=== PATIENT | female | born 1970 | race Caucasian/White ===

== ENCOUNTER → 2021-10-22 | Outpatient (REF) | LOC: M LABSMTC 10:29 | PROVIDERS: ATTEND Family Medicine | DX: Z20.822 Contact with and (suspected) exposure to COVID-19 (principal); Z11.52 Encounter for screening for COVID-19 ==

== ENCOUNTER → 2021-10-24 | Outpatient (REF) | LOC: M EMP 11:03 | PROVIDERS: ATTEND Family Medicine | DX: Z11.52 Encounter for screening for COVID-19 (principal) ==

== ENCOUNTER → 2021-11-09 | Outpatient (REF) | LOC: M LABSMTC 10:05 | PROVIDERS: ATTEND Family Medicine | DX: Z11.52 Encounter for screening for COVID-19 (principal) ==

== ENCOUNTER 2021-11-17 14:51 | Emergency (ER) | payer OTHER, SELFPAY ==
[~2021-11-17] VITALS: Ht 165.1 cm; Wt 90.9 kg
[2021-11-17] MEDS ORDERED: methocarbamoL 750 MG TAB PO ONE ×2 (16:35→18:20)
[2021-11-17] MEDS ORDERED: LIDOCAINE 5% (LIDODERM) PATCH TD ONE (16:35)
[2021-11-17] MEDS ORDERED: KETOROLAC 60MG 2ML VIAL IM ONE (16:35)
[2021-11-17] MEDS ORDERED: METH-1165 PO (18:18)
[2021-11-17] MEDS ORDERED: NAPR-837 PO (18:18)
[2021-11-17] MEDS ORDERED: ASPE4PAD TOP (18:18)
[2021-11-17] MEDS ORDERED: SULF1TAB23 PO (18:18)
[2021-11-17] MEDS ORDERED: BACTRIM 160MG/800MG DS TAB PO ONE (18:20)
[2021-11-17 18:32] VITALS: BP 162/88
[2021-11-17] MEDS ORDERED: **NOTE PATIENT COMMENT** MISC XX SCH (21:00)
[2021-11-19] MEDS ORDERED: NITR1CAP11 PO (09:10)
== END 2021-11-17 18:35 | disposition home or self-care (01) ==
LOC: M ED 14:51
DX: N30.00 Acute cystitis without hematuria (principal); M54.50 Low back pain, unspecified; Z90.49 Acquired absence of other specified parts of digestive tract; Z90.710 Acquired absence of both cervix and uterus; Z79.899 Other long term (current) drug therapy
CPT/HCPCS: 73502; 81000; 81015; 87088; 87186; 96372; 99283; J1885

== ENCOUNTER → 2022-06-03 | Outpatient (REF) | payer BC ==
[~2022-06-03] MED LIST: ASPE4PAD TOP; METH-1165 PO; NAPR-837 PO; NITR1CAP11 PO; SULF1TAB23 PO
[2022-06-03 17:27] LABS: ALBUMIN 3.6 G/DL (3.2-5.2); ALKALINE PHOSPHATASE 134 U/L (46-116); ALT/SGPT 67 U/L (7.0-40); AST/SGOT 37 U/L (<34); BILIRUBIN,TOTAL 0.3 MG/DL (0.3-1.2); BLOOD UREA NITROGEN 14 MG/DL (9-23); CALCIUM LEVEL 9.4 MG/DL (8.5-10.1); CARBON DIOXIDE LEVEL 28 MMOL/L (20-31); CHLORIDE LEVEL 106 MMOL/L (98-107); CHOLESTEROL LEVEL 257 MG/DL (<200); CHOLESTEROL RISK RATIO 4.43 (<5); CREATININE FOR GFR 0.81 MG/DL (0.55-1.30); GLOMERULAR FILTRATION RATE > 60.0 (>51); GLUCOSE, FASTING 85 MG/DL (60-100); HDL CHOLESTEROL 57.9 MG/DL (>40); LDL CHOLESTEROL 164.3 MG/DL (<100); NON-HDL-C 199.1 MG/DL; POTASSIUM SERUM 4.4 MMOL/L (3.5-5.1); SODIUM LEVEL 138 MMOL/L (136-145); TOTAL PROTEIN 7.1 G/DL (5.7-8.2); TRIGLYCERIDES LEVEL 174 MG/DL (<150)
[2022-06-03 17:29] LABS: BASO # 0.1 10^3/uL (0.0-0.2); BASO % 1.1 % (0.0-1.0); EOS # 0.2 10^3/uL (0.0-0.5); EOS % 2.5 % (0.0-3.0); HEMOGLOBIN 14.1 g/dl (12.0-15.5); LYMPH % 25.6 % (24.0-44.0); MEAN CORPUSCULAR VOLUME 93.6 fl (80.0-96.0); MONO # 0.5 10^3/uL (0.0-0.8); MONO % 7.1 % (2.0-8.0); NEUTROPHILS # 4.8 10^3/uL (1.5-8.5); NEUTROPHILS % 63.4 % (36.0-66.0); PLATELET COUNT, AUTOMATED 393 10^3/uL (150-450); THYROID STIMULATING HORMONE 1.985 uIU/ML (0.55-4.78); TOTAL 25(OH) VITAMIN D 29.5 NG/ML (20.0-100.0); WHITE BLOOD COUNT 7.6 10^3/uL (4.0-10.0)
[2022-06-03 17:59] LABS: HEMOGLOBIN A1c 5.2 % (4.0-6.0)
== END ==
LOC: M LAB REF 16:09
PROVIDERS: ATTEND Family Medicine Addiction Medicine
DX: E66.3 Overweight (principal); R53.83 Other fatigue; E55.9 Vitamin D deficiency, unspecified

== ENCOUNTER → 2022-06-23 | Outpatient (REF) | payer BC ==
[2022-06-23 18:18] LABS: URIC ACID 6.2 MG/DL (3.1-7.8)
[2022-06-23 18:21] LABS: ALBUMIN 3.8 G/DL (3.2-5.2); ALKALINE PHOSPHATASE 153 U/L (46-116); ALT/SGPT 88 U/L (7.0-40); AST/SGOT 31 U/L (<34); BILIRUBIN,DIRECT < 0.1 MG/DL (<0.4); BILIRUBIN,TOTAL 0.3 MG/DL (0.3-1.2); RHEUMATOID FACTOR QUANT 8.5 IU/ML (<14)
[2022-06-25 13:12] LABS: ANTINUCLEAR ANTIBODIES DIRECT Negative (Negative)
== END ==
LOC: M LAB REF 16:28
PROVIDERS: ATTEND Nurse Practitioner Family
DX: Z11.9 Encounter for screening for infectious and parasitic diseases, unspecified (principal); M25.50 Pain in unspecified joint; R94.5 Abnormal results of liver function studies

== ENCOUNTER → 2022-07-08 | Outpatient (CLI) | payer BC | LOC: M WHC 15:23 | PROVIDERS: ATTEND Nurse Practitioner Family | DX: Z12.31 Encounter for screening mammogram for malignant neoplasm of breast (principal); Z78.0 Asymptomatic menopausal state; Z92.0 Personal history of contraception ==

== ENCOUNTER → 2022-07-22 | Outpatient (CLI) | payer BC | LOC: M WHC 08:46 | PROVIDERS: ATTEND Nurse Practitioner Family | DX: Z12.31 Encounter for screening mammogram for malignant neoplasm of breast (principal) | CPT/HCPCS: 76642; 77066; G0279 ==

== ENCOUNTER 2022-09-28 12:15 | Outpatient (RCR) | payer BC | END 2022-10-08 | LOC: M PT 12:15 | PROVIDERS: ATTEND Student in an Organized Health Care Education/Training Program | DX: M25.551 Pain in right hip (principal); M21.42 Flat foot [pes planus] (acquired), left foot ==

== ENCOUNTER → 2022-11-10 | Outpatient (REF) | LOC: M EMP 11:55 | PROVIDERS: ATTEND Family Medicine | DX: Z11.52 Encounter for screening for COVID-19 (principal) ==

== ENCOUNTER → 2023-01-08 | Outpatient (REF) | payer BC ==
[2023-01-08 19:28] LABS: ALBUMIN 3.7 G/DL (3.2-5.2); ALKALINE PHOSPHATASE 120 U/L (46-116); ALT/SGPT 37 U/L (7.0-40); AST/SGOT 20 U/L (<34); BILIRUBIN,TOTAL 0.2 MG/DL (0.3-1.2); BLOOD UREA NITROGEN 18 MG/DL (9-23); CALCIUM LEVEL 9.3 MG/DL (8.5-10.1); CARBON DIOXIDE LEVEL 28 MMOL/L (20-31); CHLORIDE LEVEL 104 MMOL/L (98-107); CREATININE FOR GFR 0.81 MG/DL (0.55-1.30); GLOMERULAR FILTRATION RATE > 60.0 (>51); GLUCOSE, FASTING 88 MG/DL (60-100); POTASSIUM SERUM 4.7 MMOL/L (3.5-5.1); SODIUM LEVEL 140 MMOL/L (136-145); TOTAL PROTEIN 7.1 G/DL (5.7-8.2)
== END ==
LOC: M LAB REF 16:37
PROVIDERS: ATTEND Nurse Practitioner Family
DX: R74.01 Elevation of levels of liver transaminase levels (principal)

== ENCOUNTER → 2023-03-16 | Outpatient (REF) | LOC: M EMP 03-15 09:06 | PROVIDERS: ATTEND Family Medicine | DX: Z53.9 Procedure and treatment not carried out, unspecified reason (principal) ==

== ENCOUNTER → 2023-07-26 | Outpatient (CLI) | payer BC ==
[~2023-07-26] MED LIST changes: +NITR100C3 PO; -NITR1CAP11 PO
[2023-07-26 10:27] LABS: ALBUMIN 3.7 G/DL (3.2-5.2); ALKALINE PHOSPHATASE 119 U/L (46-116); ALT/SGPT 31 U/L (7.0-40); AST/SGOT 17 U/L (<34); BILIRUBIN,DIRECT < 0.1 MG/DL (<0.4); BILIRUBIN,TOTAL 0.4 MG/DL (0.3-1.2); CHOLESTEROL LEVEL 291 MG/DL (<200); CHOLESTEROL RISK RATIO 5.54 (<5); HDL CHOLESTEROL 52.5 MG/DL (>40); LDL CHOLESTEROL 180.1 MG/DL (<100); NON-HDL-C 238.5 MG/DL; TOTAL PROTEIN 6.9 G/DL (5.7-8.2); TRIGLYCERIDES LEVEL 292 MG/DL (<150)
[2023-07-26 10:28] LABS: THYROID STIMULATING HORMONE 3.091 uIU/ML (0.55-4.78)
== END ==
LOC: M LAB 08:50
PROVIDERS: ATTEND Nurse Practitioner Family
DX: R74.01 Elevation of levels of liver transaminase levels (principal); Z68.33 Body mass index [BMI] 33.0-33.9, adult; E66.9 Obesity, unspecified

== ENCOUNTER 2023-09-03 10:00 | Day surgery (SDC) | payer BC ==
[~2023-09-03] VITALS: Ht 165.1 cm; Wt 91.0 kg
[~2023-09-03 10:00] MED LIST changes: +IBUP-354 PO; +OMEG10002 PO; +PROZ40CA PO; +THERTAB52 PO; +VITA100093 PO; +propofoL 200 MG/20 ML VIAL As Ordered ONE
[2023-09-03] MEDS: NS 1,000 ML IV ONE (10:15)
[2023-09-03] MEDS ORDERED: LIDOCAINE 2% 100MG/5ML SDV (FOR ANES.) As Ordered ONE (10:34)
[2023-09-03 11:17] VITALS: TEMP 97.3
[2023-09-03 11:41] VITALS: BP 142/78; O2SAT 99
== END 2023-09-03 11:53 | disposition home or self-care (01) ==
LOC: M OPP 10:00
PROVIDERS: ATTEND Surgery
DX: Z12.11 Encounter for screening for malignant neoplasm of colon (principal); K64.4 Residual hemorrhoidal skin tags; K64.8 Other hemorrhoids; Z79.1 Long term (current) use of non-steroidal anti-inflammatories (NSAID); Z79.899 Other long term (current) drug therapy

== ENCOUNTER 2023-12-14 09:14 | Emergency (ER) | payer BC ==
[~2023-12-14] VITALS: Ht 162.6 cm; Wt 89.1 kg
[~2023-12-14 09:14] MED LIST changes: -propofoL 200 MG/20 ML VIAL As Ordered ONE
[2023-12-14] MEDS ORDERED: IBUP200C25 PO (09:31)
[2023-12-14 09:59] LABS: BASO % 0.2 % (0.0-1.0); EOS % 0.1 % (0.0-3.0); HEMATOCRIT 42.2 % (36.0-47.0); HEMOGLOBIN 14.3 g/dl (12.0-15.5); LYMPH # 0.7 10^3/uL (1.5-5.0); LYMPH % 3.9 % (24.0-44.0); MEAN CORPUSCULAR HEMOGLOBIN 29.9 pg (27.0-33.0); MEAN CORPUSCULAR HGB CONC 33.9 g/dl (32.0-36.5); MEAN CORPUSCULAR VOLUME 88.1 fl (80.0-96.0); MONO # 1.2 10^3/uL (0.0-0.8); MONO % 7.1 % (2.0-8.0); NEUTROPHILS # 14.7 10^3/uL (1.5-8.5); NEUTROPHILS % 87.9 % (36.0-66.0); PLATELET COUNT, AUTOMATED 362 10^3/uL (150-450); RED BLOOD COUNT 4.79 10^6/uL (4.00-5.40); WHITE BLOOD COUNT 16.7 10^3/uL (4.0-10.0)
[2023-12-14 10:28] LABS: LIPASE 37 U/L (12-53)
[2023-12-14 10:30] LABS: ALBUMIN 2.8 G/DL (3.2-5.2); ALKALINE PHOSPHATASE 365 U/L (35-104); ALT/SGPT 182 U/L (7.0-40); AST/SGOT 108 U/L (<34); BILIRUBIN,DIRECT 1.1 MG/DL (<0.4); BILIRUBIN,TOTAL 1.9 MG/DL (0.3-1.2); BLOOD UREA NITROGEN 13 MG/DL (9-23); CALCIUM LEVEL 9.1 MG/DL (8.5-10.1); CARBON DIOXIDE LEVEL 23 MMOL/L (20-31); CHLORIDE LEVEL 104 MMOL/L (98-107); CREATININE FOR GFR 1.03 MG/DL (0.55-1.30); GLOMERULAR FILTRATION RATE 59.7 (>51); GLUCOSE, FASTING 132 MG/DL (60-100); POTASSIUM SERUM 3.9 MMOL/L (3.5-5.1); SODIUM LEVEL 138 MMOL/L (136-145); TOTAL PROTEIN 6.7 G/DL (5.7-8.2)
[2023-12-14] MEDS: KETOROLAC 30 MG/ML 1ML VIAL IV ONE (12:02)
[2023-12-14] MEDS: ONDANSETRON 4MG 2ML VIAL IV ONE (12:02)
[2023-12-14 12:17] LABS: HEPATITIS B SURFACE ANTIGEN NEGATIVE (NEGATIVE)
[2023-12-14 12:26] LABS: INR 1.05; PARTIAL THROMBOPLASTIN TIME 31.7 SECONDS (24.8-34.2)
[2023-12-14 12:38] LABS: HEPATITIS C VIRUS ABY INDEX < 0.02 INDEX (<0.8)
[2023-12-14 12:39] LABS: HEPATITIS B CORE ANTIBODY IGM NEGATIVE (NEGATIVE)
[2023-12-14] MEDS ORDERED: ISOVUE-370 76% 100ML VIAL As Ordered ONE (12:47)
[2023-12-14] MEDS ORDERED: CIPR500T39 PO (14:05)
[2023-12-14 14:34] VITALS: BP 132/77; TEMP 99.9; O2SAT 97
== END 2023-12-14 14:38 | disposition home or self-care (01) ==
LOC: M ED 09:14
DX: N10 Acute pyelonephritis (principal); F12.10 Cannabis abuse, uncomplicated; Z87.442 Personal history of urinary calculi; Z79.1 Long term (current) use of non-steroidal anti-inflammatories (NSAID); Z79.2 Long term (current) use of antibiotics; Z79.899 Other long term (current) drug therapy
CPT/HCPCS: 74177; 80048; 80074; 80076; 81001; 83690; 85025; 85610; 85730; 87086; 96374; 99284; J1885; J2405; Q9967

== ENCOUNTER → 2024-06-07 | Outpatient (CLI) | payer BC ==
[~2024-06-07] MED LIST changes: +CIPR500T39 PO; +IBUP200C25 PO
[2024-06-07 09:03] LABS: FOLLICLE STIMULATING HORMONE 123.7 mIU/ML
[2024-06-07 09:04] LABS: ESTRADIOL 26.3 PG/ML; THYROID STIMULATING HORMONE 3.657 uIU/ML (0.55-4.78)
== END ==
LOC: M LAB 07:11
PROVIDERS: ATTEND Nurse Practitioner Family
DX: N95.1 Menopausal and female climacteric states (principal)

== ENCOUNTER → 2024-08-12 | Outpatient (CLI) | payer BC | LOC: M RAD 08:37 | PROVIDERS: ATTEND Nurse Practitioner Family | DX: M47.896 Other spondylosis, lumbar region (principal); M54.16 Radiculopathy, lumbar region ==

== ENCOUNTER 2024-09-07 19:40 | Emergency (ER) | payer BC ==
[~2024-09-07] VITALS: Ht 162.6 cm; Wt 92.4 kg
[2024-09-07] MEDS: ACETAMINOPHEN 500 MG TAB PO ONE (22:50)
[2024-09-08 01:11] VITALS: BP 194/91; TEMP 97; O2SAT 98
== END 2024-09-08 01:12 | disposition home or self-care (01) ==
LOC: M ED 19:40
DX: S06.0X0A Concussion without loss of consciousness, initial encounter (principal); R22.0 Localized swelling, mass and lump, head; Y04.0XXA Assault by unarmed brawl or fight, initial encounter; F12.10 Cannabis abuse, uncomplicated; Y92.009 Unspecified place in unspecified non-institutional (private) residence as the place of occurrence of the external cause; Y93.89 Activity, other specified; Y99.9 Unspecified external cause status; Z79.2 Long term (current) use of antibiotics; Z79.1 Long term (current) use of non-steroidal anti-inflammatories (NSAID); Z79.899 Other long term (current) drug therapy

== ENCOUNTER → 2024-12-11 | Outpatient (REF) | payer BC, OTHER ==
[~2024-12-11] MED LIST changes: +AMOX875T2 PO
[2024-12-11 17:27] LABS: CALCIUM LEVEL 9.0 MG/DL (8.5-10.1); CARBON DIOXIDE LEVEL 30.0 MMOL/L (20-31); CHLORIDE LEVEL 102.0 MMOL/L (98-107); CHOLESTEROL LEVEL 271.0 MG/DL (<200); CHOLESTEROL RISK RATIO 4.94 (<5); CREATININE FOR GFR 0.97 MG/DL (0.55-1.30); GLOMERULAR FILTRATION RATE 69.4 (>51); LDL CHOLESTEROL 162.6 MG/DL (<100); NON-HDL-C 216.2 MG/DL; POTASSIUM SERUM 4.8 MMOL/L (3.5-5.1); SODIUM LEVEL 137.0 MMOL/L (136-145); TRIGLYCERIDES LEVEL 268.0 MG/DL (<150)
[2024-12-11 17:31] LABS: ESTIMATED AVERAGE GLUCOSE 108.0 MG/DL (60-110)
== END ==
LOC: M LAB REF 16:26
PROVIDERS: ATTEND Nurse Practitioner Family
DX: I10 Essential (primary) hypertension (principal); Z68.35 Body mass index [BMI] 35.0-35.9, adult; E66.812 Obesity, class 2